=== PATIENT | female | born 1985 | race Caucasian/White ===

== ENCOUNTER 2016-06-08 15:22 | Inpatient (IN) | payer OTHER ==
[~2016-06-08] VITALS: Ht 167.6 cm; Wt 88.6 kg
[~2016-06-08 15:22] MED LIST: PRENAT PO
--- NOTE | 2016-06-08 15:41 | TRIAGE ---
OB Triage Datetime Report Generated by CPN: 06/08/2016 15:41 Datetime: 06/08/2016 15:31 Vaginal Exam Dilatation (cms): 3.0 Effacement (%): 70 Station: -2 Exam By: WILDER EM Vaginal Bleeding: Normal Show Cervix, Consistency: Soft Cervix, Position: Midposition Datetime: 06/08/2016 15:30 Assessment Type: Triage Maternal Assessment Level of Consciousness: Fully Conscious DTR's/Clonus: DTRs 2+; No Clonus Headache: Denies Blurred Vision: No Respiratory Effort: Unlabored; Regular Rhythm; Equal Expansion Breath Sounds, Left: Clear and Equal Breath Sounds, Right: Clear and Equal Nausea/Vomiting: Denies RUQ Epigastric Pain: Denies Lower Extremities Edema: None Degree: None Upper Extremities Edema: None Degree: None Facial Edema: None Fall Risk Assessment History of Falling: (0) No Secondary Diagnosis: (0) No Ambulatory Aid: (0) Bedrest/Nurse Assist IV Therapy: (0) No Gait: (0) Normal/Bedrest/Immobile Mental Status: (0) Oriented to Own Ability Fall Score: 0 Fall Risk Score Definition: No Risk: No action required Datetime: 06/08/2016 15:19 Time of Arrival: 06/08/2016 15:19 EGA: 40.4 Arrived By: Ambulatory Arrived From: Home Chief Complaint: R/O LABOR Movement: Present Contractions: Irregular Time Contractions Began: 06/08/2016 06:00 Rupture of Membranes: Denies Vaginal Discharge: Denies Recent Sexual Intercouse: Denies Abdominal Trauma: Not Applicable Patient Complaints: Contractions Additional Patient Complaints: NONE Time Provider Notified: 06/08/2016 15:22 Provider Notified: REX Initial Plan: MONITOR Datetime: 05/28/2016 17:32 Fall Score: 0 Fall Risk Score Definition: No Risk: No action required Datetime: 05/28/2016 17:31 EGA: 39.0
[2016-06-08] MEDS ORDERED: AMPICILLIN 2 GM/NS (PMX) 100 ML IV ONE (20:00)
[2016-06-08] MEDS ORDERED: LACTATED RINGER'S 1,000 ML IV PRN (20:00)
[2016-06-08] MEDS ORDERED: METHYLERGONOVINE 0.2 MG INJ IM PRN (20:00)
[2016-06-08] MEDS ORDERED: AMPICILLIN 1 GM/NS (PMX) 50 ML IV SCH (20:00)
[2016-06-08] MEDS ORDERED: IBUPROFEN 600 MG TAB PO PRN (20:00)
[2016-06-08] MEDS ORDERED: MISOPROSTOL 200 MCG TAB PR PRN (20:00)
[2016-06-08] MEDS ORDERED: BUTORPHANOL 2 MG INJ IV PRN (20:00)
[2016-06-08] MEDS ORDERED: CARBOPROST 250 MCG INJ IM PRN (20:00)
[2016-06-08] MEDS ORDERED: LIDOCAINE 1% (MPF) 30 ML INJ INJ PRN (20:00)
[2016-06-08] MEDS ORDERED: OXYTOCIN 30 UNITS/LR 500 ML IV PRN (20:00)
[2016-06-08 20:03] VITALS: Ht 167.6 cm; Wt 88.6 kg
[2016-06-08] MEDS: LACTATED RINGER'S 1,000 ML IV SCH (20:08)
[2016-06-08 20:14] LABS: BASOPHILS % 0.4 % (0.0-2.0); EOSINOPHILS # 0.1 10^3/ul (0.0-0.5); EOSINOPHILS % 0.8 % (0.0-7.0); HEMATOCRIT 39.5 % (37.0-47.0); HEMOGLOBIN 13.1 g/dl (12.0-16.0); LYMPHOCYTES # 1.8 10^3/ul (0.8-2.9); LYMPHOCYTES % 25.4 % (15.0-51.0); MEAN CORPUSCULAR HGB CONC 33.2 g/dl (32.0-37.0); MEAN CORPUSCULAR VOLUME 90.3 fl (82.0-101.0); MEAN PLATELET VOLUME 9.6 fl (7.4-10.4); MONOCYTE # 0.5 10^3/ul (0.3-0.9); MONOCYTES % 6.7 % (0.0-11.0); NEUTROPHIL # 4.8 10^3/ul (1.6-7.5); NEUTROPHILS % 66.7 % (39.0-77.0); PLATELET COUNT 231 10^3/UL (140-440); RED BLOOD COUNT 4.37 10^6/ul (4.20-5.40); UNCORRECTED WBC 7.3 10^3/ul (4.8-10.8); WHITE BLOOD COUNT 7.3 10^3/ul (4.8-10.8)
[2016-06-08 20:17] LABS: CONDITION 1; INR 0.85; LH ANALYZER COMMENTS 1; PROTIME 11.6 Sec (12.2-14.2); PT RATIO 0.9
[2016-06-08 20:18] LABS: PARTIAL THROMBOPLASTIN TIME 28.4 Sec (25.0-35.0)
[2016-06-09] VITALS (7 sets, daily range): BP systolic 98–117; BP diastolic 53–71; PULSE 71–86; RESP 16–24
[2016-06-09] MEDS: LACTATED RINGER'S 1,000 ML IV SCH ×2 (02:18→09:23)
[2016-06-09] MEDS ORDERED: CEFAZOLIN 2 GM/50 ML (PMX) 50 ML IVPB ONE (08:18)
[2016-06-09] MEDS ORDERED: OXYTOCIN 30 UNITS/LR 500 ML IV SCH ×3 (09:00→15:30)
--- NOTE | 2016-06-09 15:17 | HP ---
Date/Time of Note Date/Time of Note DATE: 06/09/16 TIME: 15:12 OB - History Hx of Present Free Text/Dictation 30 years old female admitted to [facility] in labor with contractions 4-5 minutes heart rate at 135 beats category 1 pelvic examination cervical dilatation 3 cm 70% effacement vertex at -2 station chief Complaint: labor pain Estimated Due Date: Jun 08, 2016 : 2 Para: 1 Care: Good Care Ultrasounds: Normal mid trimester US Obstetrical Complications: None Medical Complications: None Past Family/Social History * Past Medical, Surgical, Family and Obstetric Histories reviewed from chart. Rubella: immune RPR/VDRL: Negative GBS Status: Negative HBsAG: Negative OB Admission Exam Vital Signs Vital Signs Vital Signs Date Time Temp Pulse Resp B/P Pulse Ox O2 Delivery O2 Flow Rate FiO2 06/09/16 07:57 98.2 73 18 117/71 Room Air Physical Exam Heart: Rhythm Normal Lungs: Clear, Equal Abdomen: WNL Extremities: Normal Cervical Dilatation: 3cm Effacement: 75% Station: -2 Membranes: Intact Heart Rate: 130's Accelerations: Accelerations Present Decelerations: No Decelerations Varibility: Moderate Contractions on Admission: < 5 Minutes Apart Intensity: Moderate Last 72 hours Lab Results CBC & BMP 06/08/16 17:00 GABINO GOODMAN MD Jun 09, 2016 15:17
--- NOTE | 2016-06-09 15:21 | LDN ---
Date/Time of Note Date/Time of Note DATE: 06/09/16 TIME: 15:18 Delivery Summary Normal spontaneous vaginal delivery of a baby girl from occiput posterior face up shoulder delivered without any difficulty followed with the rest of the body placenta spontaneous expulsion inspected complete blood loss 250 mL patient sustained 1 cm perineal laceration which repaired with 3-0 chromic catgut Placenta Delivered: Spontaneously Meconium: none Perineum intact?: No Anesthesia type: Local Estimated blood loss: 250 Sponge & Needle done & correct: Yes All needle counts correct: Yes Any foreign bodies felt in the: No Problems: Infant Delivery Information Sex Sex: female Apgars 1 Minute: 9 5 Minute: 9 Suctioning Nose & mouth suctioned at [place]: Yes Delee suction performed: No Umbilical Cord Umbilical cord with: 3 Vessels Cord presentations: no nuchal cord Cord Blood was obtained: Yes GABINO GOODMAN MD Jun 09, 2016 15:21
[2016-06-09] MEDS: OXYTOCIN 30 UNITS/LR 500 ML IV SCH ×2 (16:30→20:51)
[2016-06-09] MEDS ORDERED: DIBUCAINE 1% 30 GM OINT PR PRN (17:00)
[2016-06-09] MEDS ORDERED: OXYCODONE/ASPIRIN (4.88/325) TAB PO PRN ×2 (17:00)
[2016-06-09] MEDS ORDERED: LANOLIN 7 GM TUBE TOP PRN (17:00)
[2016-06-09] MEDS ORDERED: WITCH HAZEL/GLYCERIN PAD PR PRN (17:00)
[2016-06-09] MEDS ORDERED: ACETAMINOPHEN/CODEINE #3 TAB PO PRN ×2 (17:00)
[2016-06-09] MEDS ORDERED: ONDANSETRON 4 MG INJ IV PRN (17:00)
[2016-06-09] MEDS ORDERED: ACETAMINOPHEN 325 MG TAB PO PRN (17:00)
[2016-06-09] MEDS ORDERED: BENZOCAINE 20% 56 ML SPRAY TOP PRN (17:00)
[2016-06-09] MEDS: IBUPROFEN 600 MG TAB PO SCH (17:44)
[2016-06-09] MEDS: SENNA/DOCUSATE NA (8.6MG/50MG) TAB PO SCH (20:51)
[2016-06-10] VITALS: BP 101/60; PULSE 72; RESP 16
[2016-06-10] MEDS: IBUPROFEN 600 MG TAB PO SCH ×4 (01:25→17:24)
[2016-06-10 04:00] VITALS: BP 106/59; PULSE 69; RESP 18
[2016-06-10 06:50] LABS: BASOPHILS % 0.5 % (0.0-2.0); EOSINOPHILS # 0.1 10^3/ul (0.0-0.5); EOSINOPHILS % 1.1 % (0.0-7.0); HEMATOCRIT 34.5 % (37.0-47.0); HEMOGLOBIN 11.7 g/dl (12.0-16.0); LYMPHOCYTES # 2.2 10^3/ul (0.8-2.9); LYMPHOCYTES % 21.7 % (15.0-51.0); MEAN CORPUSCULAR HEMOGLOBIN 30.5 pg (29.0-33.0); MEAN CORPUSCULAR HGB CONC 33.9 g/dl (32.0-37.0); MEAN CORPUSCULAR VOLUME 89.9 fl (82.0-101.0); MEAN PLATELET VOLUME 8.9 fl (7.4-10.4); MONOCYTE # 0.6 10^3/ul (0.3-0.9); MONOCYTES % 5.8 % (0.0-11.0); NEUTROPHIL # 7.1 10^3/ul (1.6-7.5); NEUTROPHILS % 70.9 % (39.0-77.0); PLATELET COUNT 204 10^3/UL (140-440); RED BLOOD COUNT 3.84 10^6/ul (4.20-5.40); RED CELL DISTRIBUTION WIDTH 16.7 % (11.5-14.5); UNCORRECTED WBC 9.9 10^3/ul (4.8-10.8); WHITE BLOOD COUNT 9.9 10^3/ul (4.8-10.8)
[2016-06-10 06:56] LABS: CONDITION 1; LH ANALYZER COMMENTS 1
[2016-06-10 07:40] VITALS: BP 102/67; PULSE 68; RESP 18
[2016-06-10] MEDS: SENNA/DOCUSATE NA (8.6MG/50MG) TAB PO SCH (08:30)
[2016-06-10] MEDS ORDERED: INFLUENZA VIRUS VACCINE 0.5 ML (DISPENSING) IM* ONE (09:00)
--- NOTE | 2016-06-10 13:57 | PN ---
Date/Time of Note Date/Time of Note DATE: 06/10/16 TIME: 13:56 OB Subjective Subjective Subjective day 1 Vital sign a stable afebrile abdomen soft uterus firm lochia normal extremity normal GABINO GOODMAN MD Jun 10, 2016 13:57
[2016-06-10 15:45] VITALS: BP 112/76; PULSE 77; RESP 18
[2016-06-10 20:00] VITALS: BP 105/72; PULSE 80; RESP 20
[2016-06-11] MEDS: IBUPROFEN 600 MG TAB PO SCH ×3 (00:38→13:15)
[2016-06-11] MEDS: SENNA/DOCUSATE NA (8.6MG/50MG) TAB PO SCH ×2 (00:38→09:18)
[2016-06-11 04:00] VITALS: BP 115/73; PULSE 72; RESP 16
[2016-06-11 08:20] VITALS: BP 102/54; PULSE 70; RESP 17
[2016-06-11] MEDS ORDERED: MEASLES,MUMPS,RUBELLA VACCINE INJ SC* ONE (09:00)
--- NOTE | 2016-06-11 10:52 | PD.PPDC ---
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
--- NOTE | 2016-06-11 10:56 | DS ---
Date/Time of Note Date/Time of Note DATE: 06/11/16 TIME: 10:54 Obstetrical Discharge Record Final Diagnosis Final Diagnosis: Term delivered Vaginal Delivery Obstetrical Delivery: Spontaneous Condition on Discharge Physical Assessment Last Vitals: day 2 Afebrile vital sign is stable abdomen soft uterus firm lochia normal extremity normal patient discharged home with follow-up instruction to be seen at the clinic in 2 weeks Voiding: Yes Breast: Filling Fundus: Firm Calf Tenderness: No Patient Condition: Good GABINO GOODMAN MD Jun 11, 2016 10:56
== END 2016-06-11 18:12 | disposition home or self-care (01) | DRG 775 ==
LOC: OBT 15:22 → L-D 15:23 → OBT 15:32 → L-D 15:32 → PP1 06-09 16:35
PROVIDERS: ADMIT Obstetrics & Gynecology; ATTEND Obstetrics & Gynecology
PROC: 10E0XZZ Delivery of Products of Conception, External Approach (ICD-10-PCS; principal; 2016-06-09)
DX: O80 Encounter for full-term uncomplicated delivery (principal); Z37.0 Single live birth; Z3A.40 40 weeks gestation of pregnancy
CPT/HCPCS: 85025; 85610; 85730; 86592; 86706; 86900; 86901; 90686; G0463; J0690; J2590; J7120